=== PATIENT | female | born 1980 ===

== ENCOUNTER 2025-02-12 09:00 | Day surgery (SDC) | payer OTHER ==
[2025-02-08 09:01] VITALS: BP 140/91
[2025-02-08 09:55] LABS: URINE APPEARANCE Clear; URINE BILIRRUBIN Negative (NEGATIVE); URINE BLOOD Small; URINE COLOR Yellow; URINE GLUCOSE Negative (NEGATIVE); URINE KETONE Negative (NEGATIVE); URINE LEUKOCYTE Negative; URINE NITRATE Negative; URINE PROTEIN Negative (NEGATIVE); URINE UROBILINOGEN 0.2 E.U./dl
[2025-02-08 09:57] LABS: BASO % 1.6 % (0.1-1.2); EOS # 0.22 (0.04-0.54); EOS % 6.0 % (0.7-7.0); LYMPH # 1.21 (1.18-3.74); LYMPH % 32.9 % (19.3-53.1); MEAN PLATELET VOLUME 10.30 fl (9.4-12.4); MONO # 0.36 (0.24-0.82); MONO % 9.8 % (4.7-12.5); NEUT # 1.82 (1.56-6.13); NEUT % 49.4 % (34.0-71.1); RED CELL DISTRIBUTION WIDTH 12.3 % (11.6-14.4)
[2025-02-08 10:01] LABS: URINE BACTERIA 103.2 uL (0.0-1933); URINE EPITHELIAL CELLS 7.0 uL (0.0-38.8); URINE WBC 2.9 uL (0.0-23.2)
[2025-02-08 10:25] LABS: INR 0.98
[2025-02-08 10:34] LABS: URINE CAST 0.14 uL (0.0-1.40); URINE RBC 1.9 uL (0.0-20.8)
[2025-02-08 10:35] LABS: ALT/SGPT 23.0 U/L (12-78); AST/SGOT 22.0 U/L (15-37); BILIRUBIN TOTAL 0.6 mg/dL (0.3-1.2); BUN CREA RATIO 16.0 (7.0-25.0); CREATININE SERUM 0.83 mg/dL (0.55-1.02); GFR 74.01; GLOBULINA 2.9 G/DL (2.4-3.5); GLUCOSE FASTING 78.0 mg/dL (65-100); OSMOLALITY SERUM 280.0 MOSM/KG (275-295)
[~2025-02-12] VITALS: Ht 165.1 cm; Wt 73.9 kg
[~2025-02-12 09:00] MED LIST: TOPROL XL25 M1 PO
[2025-02-12] MEDS ORDERED: KETOROLAC TROMETHAMINE 60 MG VIAL IM ONE ×3 (14:30→15:29)
[2025-02-12] MEDS ORDERED: ONDANSETRON HCL 2 MG/ML VIAL IV ONE (14:30)
== END 2025-02-12 17:30 | disposition home or self-care (01) ==
LOC: CIR.AMB 09:00
PROVIDERS: ATTEND Obstetrics & Gynecology
DX: N95.0 Postmenopausal bleeding (principal); N84.0 Polyp of corpus uteri; N70.91 Salpingitis, unspecified; R10.20 Pelvic and perineal pain unspecified side; N83.8 Other noninflammatory disorders of ovary, fallopian tube and broad ligament